=== PATIENT | female | born 1975 | race Caucasian/White ===

== ENCOUNTER 2019-04-26 14:12 | Emergency (ER) | payer MEDICAID ==
[~2019-04-26] VITALS: Ht 162.6 cm; Wt 76.7 kg
[2019-04-26 14:21] VITALS: Ht 162.6 cm; Wt 76.7 kg
[2019-04-26 16:56] VITALS: BP 134/72
== END 2019-04-26 16:56 | disposition home or self-care (01) ==
LOC: ED 14:12
DX: N39.0 Urinary tract infection, site not specified (principal); I10 Essential (primary) hypertension